=== PATIENT | female | born 1970 | race Caucasian/White ===

== ENCOUNTER → 2016-11-13 | Outpatient (CLI) | payer BC ==
--- NOTE | 2016-11-13 10:11 | MG ---
HISTORY: SCREENING Comparison: 11/12/2015 FINDINGS: Bilateral CC and MLO projections including implant displaced views of the right and left breast were obtained. Scattered fibroglandular tissue is seen to be present. No significant architectural dis tortion, mass or clustered microcalcifications can be observed to suggest malignancy. No skin thick ening or nipple retraction is appreciated. No pathological lymphadenopathy can be identified. Bila teral subpectoral breast implants in place. IMPRESSION: NO RADIOGRAPHIC EVIDENCE OF MALIGNANCY. ACR CATEGORY: 2 - benign findings. FOLLOW-UP EXAM 1 YEAR. Diagnostic CAD was utilized and reviewed. * 0 (ZERO) - ASSESSMENT INCOMPLETE; ADDITIONAL IMAGING IS NEEDED. * 1/ (ONE) - NEGATIVE. * 2/II (TWO) - BENIGN FINDINGS. * 3/III (THREE) - PROBABLY BENIGN FINDING; SHORT INTERVAL FOLLOW-UP SUGGESTED. * 4/IV (FOUR) - SUSPICIOUS ABNORMALITY; BIOPSY SHOULD BE CONSIDERED. * 5/V - HIGHLY SUSPICIOUS OF MALIGNANCY; BIOPSY SHOULD BE PERFORMED. A NEGATIVE X-RAY REPORT SHOULD NOT DELAY BIOPSY IF A DOMINANT OR CLINICALLY SUSPICIOUS MASS IS PRESENT; 4 TO 8 PERCENT OF CANCERS ARE NOT IDENTIFIED BY X-RAY. A NEG ATIVE REPORT MAY REINFORCE THE CLINICAL IMPRESSION. ADENOSIS AND DENSE BREASTS MAY OBSCURE AN UNDER LYING NEOPLASM. Reported By:
== END ==
LOC: RAD 08:35
PROVIDERS: ATTEND Obstetrics & Gynecology
DX: Z12.31 Encounter for screening mammogram for malignant neoplasm of breast (principal)
CPT/HCPCS: 77067

== ENCOUNTER → 2017-11-23 | Outpatient (CLI) | payer BC ==
--- NOTE | 2017-11-23 12:02 | MG ---
Examination: Bilateral screening mammogram. Clinical history: Routine screening. Technique: Digital CC and MLO views of both breasts were obtained. Implant displaced views of both br easts were also obtained. Computer aided detection analysis was performed and used during the interpr etation. Comparison: 11/13/2016, 11/12/2015, 01/20/2013. Findings: The breasts are heterogeneously dense, reducing the sensitivity of mammography. Stable bilateral shruthi st prostheses are noted. Benign-appearing calcifications are noted in the breasts bilaterally. No suspicious mass, area of architectural distortion or suspicious cluster of microcalcifications is noted. Impression: 1. No mammographic evidence of malignancy. BI-RADS category 2-benign findings. Recommend routine annual screening mammogram. Diagnostic CAD was utilized and reviewed. * 0 (ZERO) - ASSESSMENT INCOMPLETE; ADDITIONAL IMAGING IS NEEDED. * 0C - ASSESSMENT INCOMPLETE, NEEDS ADDITIONAL IMAGING EVALUATION AND/OR PRIOR MAMMOGRAMS FOR COMPARI SON. * 1/1 (ONE) - NEGATIVE. * 2/II (TWO) - BENIGN FINDINGS. * 3/III (THREE) - PROBABLY BENIGN FINDING; SHORT INTERVAL FOLLOW-UP SUGGESTED. * 4/IV (FOUR) - SUSPICIOUS ABNORMALITY; BIOPSY SHOULD BE CONSIDERED. * 5/V - HIGHLY SUSPICIOUS OF MALIGNANCY; BIOPSY SHOULD BE PERFORMED. * 6/IV - KNOWN BIOPSY PROVEN MALIGNANCY-APPROPRIATE ACTION SHOULD BE TAKEN. A NEGATIVE X-RAY REPORT SHOULD NOT DELAY BIOPSY IF A DOMINANT OR CLINICALLY SUSPICIOUS MASS IS PRESENT; 4 TO 8 PERCENT OF CANCERS ARE NOT IDENTIFIED BY X-RAY. A NEGATIVE REPORT MAY REINFORCE THE CLINICAL IMPRESSION. ADENOSIS AND DENSE BREASTS MAY OBSCURE AN UNDERLYING NEOPLASM. Reported By:
== END ==
LOC: RAD 10:20
PROVIDERS: ATTEND Obstetrics & Gynecology
DX: Z12.31 Encounter for screening mammogram for malignant neoplasm of breast (principal)
CPT/HCPCS: 77067

== ENCOUNTER 2017-12-17 11:43 | Emergency (ER) | payer BC ==
[2017-12-17 11:49] VITALS: BP 158/85; BMI 25.8
--- NOTE | 2017-12-17 12:39 | DR.EXTPAIN ---
HPI - Time seen Time seen: 12:30 - PCP Primary Care Physician: Beto STERLING - HPI Comment HPI Comment: TD UTD. DOG IMMUNIZE AGAINST RABIES. - Complaint/Symptoms Chief Complaint Doctor Comments: DOG BITE, RT THUMB INJURY, SWELLING AND PAIN. Chief Complaint:: PT C/O RT THUMB PAIN. PT STATES SHE WAS TRYING TO BREAK HER DOGS UP FROM FIGHTING AND ONE OF THEM BIT HER THUMB PT STATES SHE IS IN SEVERE PAIN. PT STATES HER TETANUS IS UTD (2YRS AGO) - Nurses notes reviewed Nurses Notes Review: Yes - Source History Provided: Patient - Mode of arrival Mode of Arrival: Ambulatory - Timing Onset of Chief Complaint: 12/17/17 - Context History of: None - Associated signs and symptoms Associated Signs and Symptoms: Pain, Swelling, Bruising PMH - PMH Past Medical History: No Past Surgical History: Yes Surgical History: Ortho Surgery Past Surgical History Comment: BREAST AUGMENTATION, WRIST - Family History History of Family Medical Conditions: Yes Family Medical History: Cancer, [place], Coronary Artery Disease, Hypertension Family Medical History Comment: ABD PROBLEMS - Social History Does patient currently use any type of tobacco product: Yes Have you used tobacco products in the last 12 months: Yes Type of Tobacco Use: Cigarettes Does any household member use tobacco: Yes Alcohol Use: Rarely Do you use any recreational Drugs:: No Lives With: Alone Lives Where: Home - infectious screening In the last 2 months have you had wt loss of >10#?: NO Have you had fever, night sweats or hemotysis?: No Have you traveled outside the country in the last 6 months?: No Isolation: Standard ROS - Review of Systems Constitutional: No Symptoms Reported Eyes: No Symptoms Reported ENTM: No Symptoms Reported Respiratoy: No Symptoms Reported Cardiovascular: No Symptoms Reported Gastrointestinal/Abdominal: No Symptoms Reported Genitourinary: No Symptoms Reported Neurological: No Symptoms Reported Musculoskeletal: Right, Hand Integumentary: Wound (PUNCTURE WOUND), Bruises Hematologic/Lymphatic: No Symptoms Reported Endocrine: No Symptoms Reported All Other Systems: Reviewed and Negative PE - Vital Signs Vitals: Temperature 99.3 F Pulse Rate 98 Respiratory Rate 18 Blood Pressure 158/85 O2 Sat by Pulse Oximetry 97 - General Limitations: No Limitations General Appearance: Alert - Head Head Exam: Normal Inspection - Eyes Eye exam: Normal Appearance - ENT ENT Exam: Normal External Ear Exam - Neck Neck Exam: Trachea Midline - Chest Chest Inspection: Symmetric Chest Wall Rise - Respiratory Respiratory Exam: Normal Lung Sounds Bilat Respiratory Exam: Bilateral Clear to Auscultation - Cardiovascular Cardiovascular Exam: Regular Rate, Normal Rhythm, Normal Heart Sounds - Abdominal Exam Abdominal Exam: Normal Inspection - Extremities Extremities Exam: Tenderness (SWELLON, BRUISED RIGHT THUMB AND HAND.). negative : Full ROM (DECREASE ROM RT THUMB.) - Lower Extremities Gait Exam: Observed and Normal - Back Back Exam: Normal Inspection - Neurological Neurological Exam: Alert, Oriented X3 - Psychiatric Psychiatric Exam: Normal Affect, Normal Mood - Skin Skin Exam: Erythema Type of Lesion: Abscess, Other (PUNTURE WOUND) MDM - Differential Diagnosis Differential Diagnosis: Contusion, Sprain, Other (PUNTURE WOUND, DOG BITE) Course - Treatment Treatment: SEE ORDERS. - Education/Counseling Education/Counseling: Patient, Education Educated On: Diagnosis, Needs for Follow Up ROR - XRAY XRAY Interpreted by: Radiologist XRAY Findings: REPORT DISCUSS WITH PATIENT. - Diagnosis Discharge Problem: Puncture wound Finger sprain Qualifiers: Encounter type: initial encounter Finger: thumb Sprain of finger site: interphalangeal joint Laterality: right Qualified Code(s): S63.621A - Sprain of interphalangeal joint of right thumb, initial encounter Dog bite Qualifiers: Encounter type: initial encounter Qualified Code(s): W54.0XXA - Bitten by dog, initial encounter - Discharge Plan Disposition: 01 HOME, SELF-CARE Condition: Stable Prescriptions: Amoxicillin & Pot Clavulanate [AUGMENTIN TAB 875 mg/125 mg *] 1 tab PO BID #20 tab Ibuprofen [MOTRIN TAB 800 MG *] 800 mg PO Q8H PRN #30 tab PRN Reason: Pain/Inflammation - Follow ups/Referrals Follow ups/Referrals: ELBA STERLING [Primary Care Provider] - 3 days - Instructions Instructions: Animal Bite, [id number], Finger Sprain, [id number] Additional Instructions: RETURN TO ED IF WORSE.
--- NOTE | 2017-12-17 13:03 | RAD ---
History: Right thumb pain after dog bite Study: Three views of the right hand including PA oblique and lateral projections Findings: There is no fracture or periosteal reaction or subluxation or radiopaque foreign body. Impression: Negative Reported By:
[2017-12-17] MEDS ORDERED: NEOSPORIN OINT TOP ONE (13:23)
[2017-12-17] MEDS ORDERED: NEOSPORIN OINT ONE (13:23)
== END 2017-12-17 13:49 | disposition home or self-care (01) ==
LOC: ER 11:52
DX: S63.621A Sprain of interphalangeal joint of right thumb, initial encounter (principal); W54.0XXA Bitten by dog, initial encounter; Y92.9 Unspecified place or not applicable
CPT/HCPCS: 73130; 96372; 96374; 99282; 99283